=== PATIENT | male | born 1970 ===

== ENCOUNTER → 2020-05-20 | Outpatient (CLI) | payer BC ==
--- NOTE | 2020-05-24 12:14 | P.STRESS ---
- Stress Test Note Stress Test Results/Findings: Exam Performed: stress echo exercise Exam Date: 05/20/20 Reason for Exam: ABN EKG Height: 6 ft Weight: 178 kg Protocol: STRESS ECHO Stage: III Duration of Exercise: 9.03 Resting Heart Rate: 86 Resting Blood Pressure: 141/98 Maximum Achieved Heart Rate: 152 Maximum Achieved Blood Pressure: 256/92 85% PMHR: 144 100% PMHR: 168 METS: 10.5 Technologist Comment: Stress Test Results/Findings: This is a 49-year-old gentleman with history of hypertension being evaluated for cardiac status because of her abnormal EKG. Stress data: Baseline EKG showed sinus rhythm with evidence of incomplete right bundle-branch block pattern and leftward axis. Blood pressure at rest is 140/98, pulse rate of 86. Patient walked on a Juan A protocol for 9 minutes achieving a maximum heart rate of 44 with a blood pressure of 256/92. EKGs taken during and after exercise did not reveal any significant changes from the baseline. Patient did not experience any chest pain. Echo data: Baseline echo images showed normal wall motion and thickening. Exercise echo images showed augmentation of wall motion and thickening. Final impression #1. Negative stress test #2. Negative stress echo.
== END ==
LOC: RADNMMAIN 09:10
PROVIDERS: ATTEND Family Medicine
DX: R94.31 Abnormal electrocardiogram [ECG] [EKG] (principal)
CPT/HCPCS: 93351